=== PATIENT | female | born 1980 | race Caucasian/White ===

== ENCOUNTER 2019-05-04 12:54 | Emergency (ER) | payer MEDICARE, MEDICAID ==
--- NOTE | 2019-05-04 14:09 | RAD ---
XR Hand Rt 3 View STANDARD HISTORY: Right hand pain and swelling FINDINGS: No acute fracture, bone destruction or dislocation is identified. There is a small well-corticated rafi ny density in the ulnar aspect of the distal radius, likely due to remote injury.
== END 2019-05-04 14:30 | disposition home or self-care (01) ==
LOC: ERS 12:54
DX: S60.221A Contusion of right hand, initial encounter (principal); F31.9 Bipolar disorder, unspecified; I10 Essential (primary) hypertension; W23.0XXA Caught, crushed, jammed, or pinched between moving objects, initial encounter

== ENCOUNTER 2021-04-13 08:24 | Outpatient (CLI) | payer MEDICAID, MEDICARE | END 2021-04-13 08:25 | disposition home or self-care (01) | LOC: BICMAMMO 08:24 | PROVIDERS: ATTEND Family Medicine | DX: Z12.31 Encounter for screening mammogram for malignant neoplasm of breast (principal) | CPT/HCPCS: 77063; 77067 ==

== ENCOUNTER 2023-02-15 10:58 | Inpatient (IN) | payer MEDICARE, MEDICAID ==
[2023-02-15] MEDS ORDERED: Ketorolac Tromethamine 30 MG/ML VIAL ONE (11:23)
[2023-02-15] MEDS ORDERED: Boostrix 0.5 ML (Tdap) VIAL (>/=7 yrs of age) ONE (12:45)
[2023-02-15] MEDS ORDERED: CEFAZOLIN 2 GM VIAL ONE (12:45)
[2023-02-15 12:47] LABS: #Monocytes 0.6 thou/uL (0.11-0.59); %Basophils 0.1 % (0.0-1.0); %Lymphocytes 16.1 % (21.0-51.0); %Monocytes 3.7 % (0.0-10.0); %Neutrophils 79.7 % (42.0-75.0); Hematocrit 40.4 % (36.0-47.0); Hemoglobin 13.1 g/dL (12.0-16.0); Mean Corpuscular HGB CONC 32.4 g/dL (32.0-36.0); Mean Corpuscular Hemoglobin 29.1 pg (27.0-31.0); Mean Corpuscular Volume 89.8 fl (78.0-98.0); Mean Platelet Volume 12.7 fL (7.4-10.4); Platelet Count 265 10x3/uL (130-400); RBC Distribution Width 13.7 % (11.5-14.5); White Blood Cell (WBC) Count 16.3 10x3/uL (4.8-10.8)
[2023-02-15] MEDS ORDERED: fentaNYL PF 100 MCG/2 ML SYRINGE ONE (12:59)
[2023-02-15 13:05] LABS: INR-International Normal Ratio 0.9; PTT 26.7 sec (22.9-36.1)
[2023-02-15 13:07] LABS: ALT (SGPT) 48 U/L (8-55); AST (SGOT) 31 U/L (5-34); Albumin 4.5 g/dL (3.5-5.0); Alkaline Phosphatase 74 U/L (40-110); Anion Gap 13 mmol/L (10-20); BUN (Urea Nitrogen) 8 mg/dL (7.0-18.7); Bilirubin, Total 0.3 mg/dL (0.2-1.2); Calc. Creatinine Clearance 0 mL/min (70-130); Calcium 9.5 mg/dL (7.8-10.44); Carbon Dioxide 25 mmol/L (22-29); Chloride 102 mmol/L (98-107); Estimated GFR 107; Globulin 3.2 g/dL (2.4-3.5); Glucose 123 mg/dL (70-105); Potassium 4.1 mmol/L (3.5-5.1); Protein, Total 7.7 g/dL (6.0-8.3); Sodium 136 mmol/L (136-145)
[2023-02-15] MEDS ORDERED: Ondansetron PF 4 MG/2 ML Vial IVP PRN (13:15)
[2023-02-15] MEDS ORDERED: CEFAZOLIN 2 GM in Sodium Chloride 0.9% 100 ML IVPB SCH (13:15)
[2023-02-15] MEDS ORDERED: Ipratropium/Albuterol 3 ML NEB NEB PRN (13:15)
[2023-02-15] MEDS ORDERED: traMADol HCl 50 MG TAB PO PRN (13:21)
[2023-02-15] MEDS ORDERED: Cyclobenzaprine 10 MG TAB PO PRN (13:21)
[2023-02-15] MEDS ORDERED: Rocuronium Bromide 10 MG/ML (10ML VIAL) ONE (14:18)
[2023-02-15] MEDS ORDERED: Lidocaine 1% PF 5 ML VIAL ONE ×2 (14:18)
[2023-02-15] MEDS ORDERED: Dexamethasone 20 MG/5 ML VIAL ONE (14:18)
[2023-02-15] MEDS ORDERED: PROPOFOL 200 MG/20 ML VIAL ONE (14:18)
[2023-02-15] MEDS ORDERED: Ondansetron PF 4 MG/2 ML Vial ONE (14:18)
[2023-02-15] MEDS ORDERED: fentaNYL 50 mcg/mL 1 mL Vial ONE ×5 (15:35→19:02)
[2023-02-15] MEDS ORDERED: SUGAMMADEX SODIUM 200 MG/2 ML VIAL ONE ×2 (16:25→16:28)
[2023-02-15] MEDS ORDERED: Labetalol HCl 100 MG/20 ML VIAL ONE (17:11)
[2023-02-15] MEDS ORDERED: Acetaminophen 500 MG TAB ONE (18:14)
[2023-02-15] MEDS: Acetaminophen 500 MG TAB PO SCH (18:15)
[2023-02-15] MEDS: traMADol HCl 50 MG TAB PO SCH (18:15)
[2023-02-15] MEDS ORDERED: traMADol HCl 50 MG TAB ONE (18:17)
[2023-02-15] MEDS: Sodium Chloride 0.9% 1,000 ML IV SCH (18:59)
[2023-02-15 21:19] VITALS: BMI 40.5
[2023-02-15] MEDS: CEFAZOLIN 2 GM in Sodium Chloride 0.9% 100 ML IVPB SCH (21:41)
[2023-02-15] MEDS: Senokot S 8.6-50 MG TAB PO SCH (21:42)
[2023-02-15] MEDS: Famotidine/PF 20 mg/2ml Vial SLOW IVP SCH (21:43)
[2023-02-15] MEDS ORDERED: Morphine 2 MG/ML VIAL SLOW IVP PRN (22:11)
[2023-02-16] MEDS: Acetaminophen 500 MG TAB PO SCH ×3 (00:02→11:33)
[2023-02-16] MEDS: traMADol HCl 50 MG TAB PO SCH ×3 (00:03→11:32)
[2023-02-16] MEDS: Sodium Chloride 0.9% 1,000 ML IV SCH ×2 (02:48→09:19)
[2023-02-16] MEDS: CEFAZOLIN 2 GM in Sodium Chloride 0.9% 100 ML IVPB SCH (04:05)
[2023-02-16 05:58] LABS: #Monocytes 0.9 thou/uL (0.11-0.59); #Neutrophils 10.8 thou/uL (1.40-6.50); %Basophils 0.1 % (0.0-1.0); %Lymphocytes 19.4 % (21.0-51.0); %Monocytes 6.3 % (0.0-10.0); %Neutrophils 73.9 % (42.0-75.0); Hematocrit 36.3 % (36.0-47.0); Hemoglobin 11.5 g/dL (12.0-16.0); Mean Corpuscular HGB CONC 31.7 g/dL (32.0-36.0); Mean Corpuscular Hemoglobin 28.7 pg (27.0-31.0); Mean Corpuscular Volume 90.5 fl (78.0-98.0); Mean Platelet Volume 12.5 fL (7.4-10.4); Platelet Count 236 10x3/uL (130-400); Red Blood Cell (RBC) Count 4.01 mill/uL (4.20-5.40); White Blood Cell (WBC) Count 14.5 10x3/uL (4.8-10.8)
[2023-02-16 06:25] LABS: Anion Gap 12 mmol/L (10-20); BUN (Urea Nitrogen) 8 mg/dL (7.0-18.7); Calc. Creatinine Clearance 164 mL/min (70-130); Calcium 8.4 mg/dL (7.8-10.44); Carbon Dioxide 24 mmol/L (22-29); Chloride 107 mmol/L (98-107); Estimated GFR 109; Glucose 139 mg/dL (70-105); Potassium 3.8 mmol/L (3.5-5.1); Sodium 139 mmol/L (136-145)
[2023-02-16 08:02] VITALS: BP 141/82; TEMP 97.5
[2023-02-16] MEDS ORDERED: FLU VACC QS2023-24(6MOS UP)/PF 60 MCG/0.5 ML SYRINGE IM ONE (09:00)
[2023-02-16] MEDS ORDERED: Polyethylene Glycol 3350 17 GM Packet PO SCH (09:00)
[2023-02-16] MEDS: Famotidine/PF 20 mg/2ml Vial SLOW IVP SCH (09:07)
[2023-02-16] MEDS: Senokot S 8.6-50 MG TAB PO SCH (09:08)
[2023-02-16] MEDS ORDERED: Ibuprofen 600 MG TAB PO SCH (09:30)
[2023-02-16] MEDS ORDERED: Cephalexin 250 MG CAP PO SCH (12:00)
== END 2023-02-16 14:30 | disposition home or self-care (01) | DRG 511 ==
LOC: ERS 10:58 → SDC 13:15 → SURG A 16:43
PROVIDERS: ADMIT Surgery; ATTEND Surgery
PROC: 0PSH04Z Reposition Right Radius with Internal Fixation Device, Open Approach (ICD-10-PCS; principal; 2023-02-15)
PROC: 0PSK04Z Reposition Right Ulna with Internal Fixation Device, Open Approach (ICD-10-PCS; 2023-02-15)
DX: S52.301A Unspecified fracture of shaft of right radius, initial encounter for closed fracture (principal); Z68.41 Body mass index [BMI] 40.0-44.9, adult; S52.201A Unspecified fracture of shaft of right ulna, initial encounter for closed fracture; I10 Essential (primary) hypertension; E66.9 Obesity, unspecified; E11.9 Type 2 diabetes mellitus without complications; F31.9 Bipolar disorder, unspecified; W18.30XA Fall on same level, unspecified, initial encounter; Z79.899 Other long term (current) drug therapy; Z98.890 Other specified postprocedural states
CPT/HCPCS: 25565; 36415; 80048; 80053; 85025; 85610; 85730; 90471; 90686; 90715; 93005; 93010; 96365; 96372; C1713; G0008; J1100; J1650; J1885; J2272; J2405; J2704; J3010; J3490; J7050; S0028

== ENCOUNTER 2023-11-22 09:44 | Emergency (ER) | payer OTHER, MEDICAID ==
[2023-11-22 11:14] LABS: Bacteria/HPF 4+ HPF (None Seen); Bilirubin Negative (Negative); Blood, Urine 1+ (Negative); CAUTI Indications for Culture Pelvic or flank pain; Clarity Turbid (Clear); Glucose, Urine (Dipstick) Normal (Negative); Ketone, Urine Negative (Negative); Leukocyte 500 Leu/uL (Negative); Nitrite Negative (Negative); Protein, Urine (Dipstick) Negative (Neg-Trace); Specific Gravity, Urine 1.017 (1.002-1.036); Urobilinogen Normal mg/dL (Less than 2); WBC/HPF 21-50 HPF (0-3)
[2023-11-22 11:17] LABS: Urine Culture Reflex Yes Yes
[2023-11-22 11:18] LABS: #Basophils 0.04 10x3/uL (0.0-0.2); %Basophils 0.3 % (0.0-1.0); %Eosinophils 2.1 % (0.0-10.0); %Lymphocytes 41.3 % (21.0-51.0); %Monocytes 5.2 % (0.0-10.0); %Neutrophils 50.8 % (42.0-75.0); Hematocrit 39.6 % (36.0-47.0); Mean Corpuscular HGB CONC 32.8 g/dL (32.0-36.0); Mean Corpuscular Hemoglobin 27.7 pg (27.0-31.0); Mean Corpuscular Volume 84.4 fL (78.0-98.0); Mean Platelet Volume 12.8 fL (7.4-10.4); Platelet Count 253 10x3/uL (130-400); RBC Distribution Width 14.2 % (11.5-14.5); Red Blood Cell (RBC) Count 4.69 mill/uL (4.20-5.40)
[2023-11-22 11:29] LABS: Troponin I Less than 0.010 ng/mL (< 0.028)
[2023-11-22 11:33] LABS: Chloride 113 mmol/L (98-107)
[2023-11-22 11:34] LABS: ALT (SGPT) 15 U/L (8-55); Albumin 3.5 g/dL (3.5-5.0); Alkaline Phosphatase 68 U/L (40-110); Anion Gap 14 mmol/L (10-20); BUN (Urea Nitrogen) 10 mg/dL (7.0-18.7); Bilirubin, Total 0.2 mg/dL (0.2-1.2); Calc. Creatinine Clearance 0 mL/min (70-130); Calcium 9.3 mg/dL (7.8-10.44); Carbon Dioxide 19 mmol/L (22-29); Estimated GFR 105; Globulin 3.9 g/dL (2.4-3.5); Glucose 105 mg/dL (70-105); Protein, Total 7.4 g/dL (6.0-8.3); Sodium 141 mmol/L (136-145)
[2023-11-22 11:43] LABS: AST (SGOT) 18 U/L (5-34); Potassium 5.1 mmol/L (3.5-5.1)
== END 2023-11-22 12:01 | disposition home or self-care (01) ==
LOC: ERS 09:44
DX: N39.0 Urinary tract infection, site not specified (principal); E11.9 Type 2 diabetes mellitus without complications; I10 Essential (primary) hypertension; Z55.6 Problems related to health literacy
CPT/HCPCS: 36415; 80053; 81001; 84484; 85025; 87086; 93005

== ENCOUNTER 2025-01-27 08:02 | Outpatient (CLI) | payer OTHER, MEDICAID | END 2025-01-27 08:03 | disposition home or self-care (01) | LOC: BICRAD 08:02 | PROVIDERS: ATTEND Family Medicine | DX: M25.562 Pain in left knee (principal); M17.12 Unilateral primary osteoarthritis, left knee ==